=== PATIENT | female | born 1995 | race Caucasian/White ===

== ENCOUNTER 2017-01-12 13:43 | Emergency (ER) | payer SELFPAY ==
[2017-01-12 14:31] VITALS: BP 126/76
[2017-01-12] MEDS ORDERED: Lidocaine 1% MPF wEPI 200,000* 30 ML SDV ONE (14:50)
[2017-01-12] MEDS ORDERED: Lidocaine 2% W/EPI 1:100,000* 20 ML MDV ONE (14:52)
--- NOTE | 2017-01-12 15:15 | UC ---
Skin Complaint HPI - HPI Summary HPI Summary: pt presents with c/o of painful, swollen, erythematous "bumps" in right armpit. Pt states they have worsened over the last 7 days. Under sure of cause, thinks it may be from shaving. - History of Current Complaint Time Seen by Provider: 01/12/17 14:27 Stated Complaint: skin complaint Hx Obtained From: Patient Hx Last Menstrual Period: 12/20/16 ?: No Onset/Duration: Gradual Onset, Lasting Days Skin Exposure Onset/Duration: Days Ago Timing: Constant Onset Severity: Mild Current Severity: Moderate Location: Discrete - right axilla Character: Pain, Redness, Raised Aggravating: Touch Alleviating: Nothing Associated Signs & Symptoms: Positive: Tenderness - Allergy/Home Medications Allergies/Adverse Reactions: Allergies Allergy/AdvReac Type Severity Reaction Status Date / Time avoids opiates Allergy See Comment Uncoded 01/12/17 14:32 Home Medications: Home Medications Buprenorphine HCl-Naloxone HCl [Suboxone 12-3 mg] 1 mis SL DAILY 01/12/17 [ History Confirmed 01/12/17] Review of Systems Constitutional: Negative Skin: Other - erythema, tenderness, "bumps" Eyes: Negative ENT: Negative Respiratory: Negative Cardiovascular: Negative Gastrointestinal: Negative Genitourinary: Negative Motor: Decreased ROM - secondary to pain in right axilla Neurovascular: Negative Musculoskeletal: Negative Neurological: Negative Psychological: Negative All Other Systems Reviewed And Are Negative: Yes PMH/Surg Hx/FS Hx/Imm Hx Previously Healthy: Yes - Surgical History Surgical History: None - Family History Known Family History: Positive: Other - positive [facility] for URI - Social History Lives: With Family Alcohol Use: None Substance Use Type: None Substance Use Comment - Amount & Last Used: subaxone Smoking Status (MU): Heavy Every Day Tobacco Smoker - Immunization History Most Recent Tetanus Shot: unknown Physical Exam Triage Information Reviewed: Yes Appearance: Well-Appearing Vital Signs: Initial Vital Signs Temp 99.3 F 01/12/17 14:22 Pulse 89 01/12/17 14:22 Resp 16 01/12/17 14:22 BP 126/76 01/12/17 14:22 Eye Exam: Normal Neck exam: Normal Respiratory Exam: Normal Cardiovascular Exam: Normal Musculoskeletal Exam: Normal Neurological Exam: Normal Psychological Exam: Normal Skin Exam: Other - 1. erythematous area, right axilla, enlarged, tender, flucuant mass measuring 4cm X 3 cm, 2. erythematous, tender flucuant mass right axilla proximal to right medial humerous measuring 1 cm X 1 cm Course/Dx - Differential Diagnoses - Skin Complaint Differential Diagnoses: Abscess, Cellulitis, MRSA - Diagnoses Provider Diagnoses: abscess, right axilla. incision and drainage of 2 abscesses in right axilla Procedures - Incision and Drainage Site: right axilla, 2 abscesses Anesthesia: Local Instrument(s): Scalpel Discharge - Discharge Plan Condition: Stable Disposition: HOME Prescriptions: Sulfamethox/Trimethoprim DS* [Bactrim DS 800/160 TAB*] 1 tab PO BID #14 tab Patient Education Materials: Abscess Incision and Drainage (ED), Abscess (ED) Referrals: Riccardo Khalil MD [Medical Doctor] - Avelina MORE,Bradley [Medical Doctor] - Additional Instructions: Please follow up with your PCP in 2 days for wound care follow up or return to clinic. Your dressing should be changed every 8 hours or more frequently if the dressings are soiled. You have been referred to a general surgeon for follow up as needed.
== END 2017-01-12 15:38 | disposition home or self-care (01) ==
LOC: UCCORT 13:43
DX: L02.411 Cutaneous abscess of right axilla (principal); F17.210 Nicotine dependence, cigarettes, uncomplicated; Z88.5 Allergy status to narcotic agent
CPT/HCPCS: 10060; 10061; 87070; 87077; 87186; 87205; 87640; 87641; 99202; G0463; J2001

== ENCOUNTER 2019-01-30 11:16 | Observation (INO) | payer OTHER ==
--- NOTE | 2019-01-30 11:41 | ED ---
Neurological HPI - HPI Summary HPI Summary: A 23 y/o F brought in by ambulance presents to ED s/p possible sz onset [employer]. This AM she woke up at baseline, and she suddenly got very "twitchy" and lightheaded. She had LOC. She thinks it was a seizure, it was similar to 2 weeks ago. Two weeks ago, she had similar sx that were witnessed, and she was evaluated at [facility], who diagnosed her with new-onset seizure. She was scheduled for an EEG on 01/27/19 but was unable to make it due to not having child care provider. Associated sx: fever. She was at baseline yesterday. - History of Current Complaint Chief Complaint: EDSeizure Stated Complaint: SEIZURE PER EMS Time Seen by Provider: 01/30/19 11:36 Hx Obtained From: Patient Hx Last Menstrual Period: 12/20/16 Onset/Duration: Sudden Onset, Resolved Timing: Intermittent Episodes Lasting: Current Severity: Moderate Pain Intensity: 0 Pain Scale Used: 0-10 Numeric Syncope Context: Loss of Consciousness: Yes Associated Signs and Symptoms: Positive: Loss of Consciousness, Lightheadness, Fever - Allergy/Home Medications Allergies/Adverse Reactions: Allergies Allergy/AdvReac Type Severity Reaction Status Date / Time amoxicillin [From Augmentin] Allergy GI Upset Verified 01/30/19 12:31 clavulanic acid Allergy GI Upset Verified 01/30/19 12:31 [From Augmentin] nickel Allergy Unknown Verified 01/30/19 15:41 Reaction Details avoids opiates Allergy See Comment Uncoded 01/12/17 14:32 Home Medications: Home Medications Buprenorphine TAB* [Subutex TAB*] 1 tab PO TID 01/30/19 [History Confirmed 01/30] Gabapentin 1 tab PO TID 01/30/19 [History Confirmed 01/30/19] Permethrin 5% CREAM* 1 applic TOPICAL DAILY 01/30/19 [History Confirmed 01/30/19 ] PMH/Surg Hx/FS Hx/Imm Hx Previously Healthy: No - TBI, stroke, sz (per pt) Opthamlomology History: Denies: Hx Legally Blind EENT History: Denies: Hx Deafness Infectious Disease History: Yes Infectious Disease History: Denies: Traveled Outside the [place] in Last 30 Days - Family History Known Family History: Positive: Other - positive [facility] for URI - Social History Occupation: Unemployed Lives: Alone Alcohol Use: None Substance Use Type: Reports: None Substance Use Comment - Amount & Last Used: subaxone Hx Tobacco Use: Yes Smoking Status (MU): Heavy Every Day Tobacco Smoker Review of Systems Positive: Fever, Other - pos: "twitchy" Neurological: Other - pos: lightheaded Positive: Syncope - LOC All Other Systems Reviewed And Are Negative: Yes Physical Exam - Summary Physical Exam Summary: VITAL SIGNS: Reviewed. GENERAL: Patient is a well-developed and nourished FEMALE who is lying comfortable in the stretcher. Patient is not in any acute respiratory distress. HEAD AND FACE: No signs of trauma. No ecchymosis, hematomas or skull depressions. No sinus tenderness. EYES: PERRLA, EOMI x 2, No injected conjunctiva, no nystagmus. No photophobia. EARS: Hearing grossly intact. Ear canals and tympanic membranes are within normal limits. MOUTH: Oropharynx within normal limits. NECK: Supple, trachea is midline, no adenopathy, no JVD, no carotid bruit, no c- spine tenderness, neck with full ROM. No meningeal signs, no Kernig's or Brudzinskis signs. CHEST: Symmetric, no tenderness at palpation LUNGS: Clear to auscultation bilaterally. No wheezing or crackles. CVS: Regular rate and rhythm, S1 and S2 present, no murmurs or gallops appreciated. ABDOMEN: Soft, non-tender. No signs of distention. No rebound, no guarding, and no masses palpated. Bowel sounds are normal. EXTREMITIES: FROM in all major joints, no edema, no cyanosis or clubbing. NEURO: Alert and oriented x 3. Speech is normal and follows commands. Intermittent abnormal jerks and twitches diffusely across body. SKIN: Dry and warm GCS: 15 Triage Information Reviewed: Yes Vital Signs On Initial Exam: Initial Vitals Temp Pulse Resp BP Pulse Ox 100.2 F 105 15 142/76 98 01/30/19 11:22 01/30/19 11:22 01/30/19 11:22 01/30/19 11:22 01/30/19 11:22 Vital Signs Reviewed: Yes Diagnostics - Vital Signs Vital Signs Temp Pulse Resp BP Pulse Ox 01/30/19 11:22 100.2 F 105 15 142/76 98 - Laboratory Result Diagrams: 01/30/19 12:13 01/30/19 12:13 Lab Statement: Any lab studies that have been ordered have been reviewed, and results considered in the medical decision making process. - Radiology CXR Radiology Interpretation Completed By: Radiologist Summary of Radiographic Findings: IMPRESSION: #. No evidence for acute intrathoracic disease. ED provider has reviewed this report. - CT BRAIN CT Interpretation Completed By: Radiologist Summary of CT Findings: IMPRESSION: #. Negative unenhanced CT of the brain. # . Paranasal sinus disease with potential acute sinusitis. ED provider has reviewed this report. - EKG 1103 Cardiac Rate: Tachycardia - 120 bpm EKG Rhythm: Sinus Tachycardia Summary of EKG Findings: No ST elevation. Poor quality EKG. Re-Evaluation - Re-Evaluation 1 Re-Evaluation Time: 11:58 Change: Worse Comment: Pt had tonic clonic activity as witnessed by charge nurse for 45-60 secs. It has resolved at this time. Pt is postictal. 2 Re-Evaluation Time: 12:45 Change: Unchanged Comment: Pt was ambulation challenge by aide. Pt walked approx. 3 steps, and became dizzy, appears weak. Family says she typically ambulates without assistance. Course/Dx - Course Assessment/Plan: This patient is a 23-year-old female who presents to the emergency department with a chief complaint of having a seizure. Patient reports that shes been having multiple seizures since this morning. She also reports that she has history of seizures for which she was prescribed Keppra but she has not taken it due to advice from her primary care physician. When she was in the emergency department, the charge nurse witnessed the patient having a tonic-clonic seizure lasting for approximately 45 seconds. The patient was in a postictal state after the seizure. She was given 2 mg of Ativan and now she is resting comfortable. Blood work without any significant abnormality except for the bases of 13.3, INR is 1.3, potassium is 3.1, glucose 128, lactic acid is 4.1, magnesium 1.8 and alkaline phosphatase of 127. Urinalysis contaminated therefore we will send urine for cultures. Urine toxicology is negative. Chest x-ray impression: No evidence for acute intrathoracic disease. I discussed my physical exam and findings with and Dr. Childers from neurology and he recommends for the patient to be giving Keppra 1 g IV and admission to the hospitalist. Discussed the case with Dr. Johnson from the hospital services who accepted the patient for admission. - Diagnoses Provider Diagnoses: Seizure - Physician Notifications Discussed Care Of Patient With: Daniel Childers - neuro Time Discussed With Above Provider: 11:50 Instructed by Provider To: Other - Discussed case. Consulted again at 1303: Recommends starting her on Keppra 1000 mg. - Critical Care Time Critical Care Time: 30-74 min Discharge - Sign-Out/Discharge Documenting (check all that apply): Patient Departure - ADMIT Patient Received Moderate/Deep Sedation with Procedure: No - Discharge Plan Condition: Stable Disposition: ADMITTED TO [facility] - Billing Disposition and Condition Condition: STABLE Disposition: Admitted to [facility] - Attestation Statements Document Initiated by Scribe: Yes Documenting Scribe: Sangeeta Stern Provider For Whom Scribe is Documenting (Include Credential): Dr. Tommy Larry MD Scribe Attestation: I, Sangeeta Stern, scribed for Dr. Tommy Larry MD on 01/30/19 at 1831. Scribe Documentation Reviewed: Yes Provider Attestation: The documentation as recorded by the Sangeeta aguilar accurately reflects the service I personally performed and the decisions made by , Dr. Tommy Larry MD Status of Scribe Document: Viewed Consult Consult: 1330: Consult with Dr. Johnson, hospitalist Will admit patient.
[2019-01-30] MEDS ORDERED: NS 0.9% 1000 ML** 1,000 ML IV ONE (11:44)
[2019-01-30] MEDS ORDERED: LORazepam INJ* 2 MG/ML 1 ML VIAL IV PUSH ONE ×2 (11:46→12:25)
[2019-01-30 12:01] LABS: Urine Appearance Cloudy; Urine Bacteria 3+ (Absent); Urine Bilirubin Negative (Negative); Urine Blood Negative (Negative); Urine Color Yellow; Urine Glucose Negative (Negative); Urine Ketones Negative (Negative); Urine Nitrite Negative (Negative); Urine Protein 1+(30 mg/dL) (Negative); Urine Red Blood Cell 2+(6-10/hpf) (Absent); Urine Specific Gravity 1.015 (1.010-1.030); Urine Squamous Epithelial Cell Present (Absent); Urine Urobilinogen Negative (Negative); Urine White Blood Cell 1+(6-10/hpf) (Absent)
[2019-01-30 12:15] LABS: Barbiturates Urine Screen None Detected (None Detect); Benzodiazepine Urine Screen None Detected (None Detect); Urine Cannabinoids Screen None Detected (None Detect)
[2019-01-30 12:21] LABS: ABS Basophils 0.1 10^3/ul (0-0.2); ABS Eosinophils 0.2 10^3/ul (0-0.6); ABS Lymphocytes 1.7 10^3/ul (1.0-4.8); ABS Monocytes 0.4 10^3/ul (0-0.8); ABS Nucleated RBC 0 10^3/ul; Eosinophil % 1.2 %; Hematocrit 40 % (35-47); Hemoglobin 13.2 g/dl (12.0-16.0); Lymphocyte % 12.8 %; Mean Corpuscular HGB Conc 33 g/dl (31-36); Mean Corpuscular Hemoglobin 28 pg (27-31); Mean Corpuscular Volume 85 fL (80-97); Mean Platelet Volume 11.8 fL (7.4-10.4); Nucleated Red Blood Cells % 0; Platelet Count 151 10^3/ul (150-450); Red Blood Count 4.68 10^6/ul (4.00-5.40); Red Cell Distribution Width 14 % (10.5-15); White Blood Count 13.3 10^3/ul (3.5-10.8)
[2019-01-30 12:28] LABS: INR 1.03 (0.77-1.02)
[2019-01-30 12:37] LABS: ALT 9 U/L (7-52); AST 16 U/L (13-39); Albumin 3.9 g/dL (3.2-5.2); Albumin/Globulin Ratio 1.4 (1-3); Alkaline Phosphatase 127 U/L (34-104); Anion Gap 11 mmol/L (2-11); BUN/Creatinine Ratio 4.8 (8-20); Blood Urea Nitrogen 4 mg/dL (6-24); CO2 Carbon Dioxide 23 mmol/L (22-32); Chloride 105 mmol/L (101-111); Creatine Kinase 68 U/L (10-223); EGFR Non-African American 82.6 (>60); Globulin 2.7 g/dL (2-4); Glucose 128 mg/dL (70-100); Magnesium 1.8 mg/dL (1.9-2.7); Potassium 3.1 mmol/L (3.5-5.0); Sodium 139 mmol/L (135-145); Total Protein 6.6 g/dL (6.4-8.9)
[2019-01-30] MEDS ORDERED: Magnesium Sulfate 1 GM IV* 1 GM/100 ML BAG IV ONE (12:50)
[2019-01-30 13:32] LABS: Alcohol < 10 mg/dL (<10)
[2019-01-30 13:49] LABS: TSH (Thyroid Stimulating Horm) 1.33 mcIU/mL (0.34-5.60)
[2019-01-30] MEDS ORDERED: levETIRAcetam IV* 1,000 MG in NS 0.9% 100 ML* 100 ML IVPB SCH (14:00)
[2019-01-30] MEDS: KCL 10 MEQ/50 ML IVPREMIX* 10 MEQ/50 ML BAG IV SCH ×2 (14:01→16:10)
[2019-01-30] MEDS: Gabapentin CAP(*) 400 MG PO SCH ×2 (16:09→21:24)
--- NOTE | 2019-01-30 16:24 | ADMNOTE ---
Subjective Date of Service: 01/30/19 Interval History: HISTORY AND PHYSICAL PCP: Dr. Jamie Santillan, Family Med in [place] also sees Dr. Nova at [facility] CC: seizure HPI: 23 year old woman with past medical history of depression, opiate abuse, reports she had 5 seizures 2 weeks ago, was seen in [place] ER. This was accompanied by tongue biting and urinary incontinence. She was referred for EEG as a result, but this was scheduled and missed. Today she had a witnessed seizure at home. She was brought to [facility], and had another witnessed tonic/ clonic seizure in the ER. She report had first seizure 2016, when on a psychiatric medication that lowers seizure threshold. This was stopped, and she did well for 2 years. She did see neurologist in [facility] 2 years ago. Patient has h/o opiate pill and IV heroin abuse, last use May 2017. She currently is on subutex through [facility]. Family History: Findings - Mother and Father alive and well, 2 sisters are OK Social History: Findings - Single, one child at home, unemployed, smokes 1/2 PPD , no alcohol use, drug use as above Past Medical History: Findings - Endorses depression/anxiety, Opiate use disorder, seizure d/o Review of Systems - Measurements Intake and Output: Intake and Output Last 24 Hours 01/28/19 01/29/19 01/30/19 01/31/19 05:59 05:59 06:59 06:59 Weight 63.503 kg - Review of Systems Constitutional Symptoms: Positive: Fatigue Dermatology: Positive: Normal Eyes: Positive: Normal Thyroid: Positive: Normal Pulmonary: Positive: Normal Cardiology: Positive: Normal Gastroenterology: Positive: Normal, Other - has Hep C Ab, negative VL, never treated Genital - Urinary: Positive: Normal Genitourinay - Female: Positive: Menses Normal Endocrinology: Positive: Normal Hematologic/Lymphatic: Negative: Anemia Neurology: Positive: Hx of Seizures Psychiatry: Positive: Depression, Anxiety Objective Active Medications: Home Medications: Buprenorphine HCl (Subutex Tab*) 8 mg PO TID LIZANDRO Gabapentin (Neurontin Cap(*)) 800 mg PO TID LIZANDRO Last Admin: 01/30/19 16:09 Dose: 800 mg Vital Signs - 8 hr 01/30/19 01/30/19 01/30/19 11:22 11:24 11:25 Temperature 37.9 C Pulse Rate 105 100 Respiratory 15 17 15 Rate Blood Pressure 142/76 142/76 (mmHg) O2 Sat by Pulse 98 98 Oximetry 01/30/19 01/30/19 01/30/19 11:55 12:00 12:05 Temperature Pulse Rate 119 124 Respiratory 13 20 21 Rate Blood Pressure 151/83 (mmHg) O2 Sat by Pulse 99 96 Oximetry 01/30/19 01/30/19 01/30/19 12:26 12:55 13:00 Temperature Pulse Rate 97 87 89 Respiratory 16 13 14 Rate Blood Pressure 104/84 122/65 (mmHg) O2 Sat by Pulse 98 97 100 Oximetry 01/30/19 01/30/19 01/30/19 13:36 14:00 14:25 Temperature Pulse Rate 88 74 84 Respiratory 18 14 20 Rate Blood Pressure 116/70 113/68 (mmHg) O2 Sat by Pulse 98 97 97 Oximetry 01/30/19 01/30/19 01/30/19 15:05 15:26 16:09 Temperature 36.6 C 37.7 C Pulse Rate 58 83 Respiratory 20 20 20 Rate Blood Pressure 110/64 113/68 (mmHg) O2 Sat by Pulse 99 97 Oximetry Oxygen Devices in Use Now: None Appearance: Alert, somnolent Eyes: No Scleral Icterus Ears/Nose/Mouth/Throat: NL Teeth, Lips, Gums, Clear Oropharnyx Neck: NL Appearance and Movements; NL JVP Respiratory: Symmetrical Chest Expansion and Respiratory Effort, Clear to Auscultation, Clear to Percussion Cardiovascular: NL Sounds; No Murmurs; No JVD, RRR Abdominal: NL Sounds; No Tenderness; No Distention Lymphatic: No Cervical Adenopathy Extremities: No Edema Skin: No Rash or Ulcers Neurological: Alert and Oriented x 3, NL Muscle Strength and Tone Lines/Tubes/Other Access: Clean, Dry and Intact Peripheral IV Nutrition: Taking PO's Result Diagrams: 01/30/19 12:13 01/30/19 12:13 Diagnostic Imaging: Chest X-ray NEG Head CT; NEG EKG Data: Normal sinus rhythm, normal axis, QT prolonged 460 ms Assess/Plan/Problems-Billing Assessment: 23 year old with new onset seizures. - Patient Problems (1) Seizure disorder Current Visit: No Status: Acute Priority: High Code(s): G40.909 - EPILEPSY , UNSP, NOT INTRACTABLE, WITHOUT STATUS EPILEPTICUS SNOMED Code(s): 418812624 Comment: -Differential would include primary epileptic condition, medication effect, undisclosed head trauma w/ scarring, brain neoplasm -Will be admitted to [facility], will have MRI, EEG tomorrow, as well as neurology consultation. -Placed on seizure precautions. (2) Hypokalemia Current Visit: Yes Status: Acute Priority: Medium Code(s): E87.6 - HYPOKALEMIA SNOMED Code(s): 21956254 Comment: -has low Mg as well, may have poor nutrition -Some risk of arrhythmia, will monitor on telemetry -Repleted Mg and K, will recheck in AM (3) Opiate abuse, episodic Current Visit: Yes Status: Acute Priority: Medium Code(s): F11.10 - OPIOID ABUSE, UNCOMPLICATED SNOMED Code(s): 8438445 Comment: -Will continue subutex. Status and Disposition: Will be on observation status
[2019-01-30] MEDS: Potassium Chlor TAB* 10 MEQ TAB.ER PO SCH ×2 (17:06→21:25)
[2019-01-30] MEDS ORDERED: Heparin VIAL(*) 5000 UNITS/ML VIAL (FIVE THOUSAND) SUBCUT SCH (21:00)
[2019-01-30] MEDS: levETIRAcetam TAB* 500 MG PO SCH (21:23)
[2019-01-30] MEDS: Buprenorphine TAB* 8 MG PO SCH (21:24)
[2019-01-31 05:41] LABS: Hematocrit 37 % (35-47); Hemoglobin 12.1 g/dl (12.0-16.0); Mean Corpuscular HGB Conc 33 g/dl (31-36); Mean Corpuscular Hemoglobin 28 pg (27-31); Mean Corpuscular Volume 85 fL (80-97); Mean Platelet Volume 11.6 fL (7.4-10.4); Platelet Count 123 10^3/ul (150-450); Red Blood Count 4.28 10^6/ul (4.00-5.40); Red Cell Distribution Width 14 % (10.5-15); White Blood Count 6.7 10^3/ul (3.5-10.8)
[2019-01-31 05:56] LABS: BUN/Creatinine Ratio 6.3 (8-20); Calcium 8.8 mg/dL (8.6-10.3); EGFR African American 107.3 (>60); EGFR Non-African American 88.7 (>60); Magnesium 1.9 mg/dL (1.9-2.7); Potassium 3.8 mmol/L (3.5-5.0)
[2019-01-31 06:03] LABS: ABS Basophils 0.1 10^3/ul (0-0.2); ABS Eosinophils 0.2 10^3/ul (0-0.6); ABS Lymphocytes 2.4 10^3/ul (1.0-4.8); ABS Monocytes 0.3 10^3/ul (0-0.8); ABS Neutrophils 3.7 10^3/ul (1.5-7.7); ABS Nucleated RBC 0 10^3/ul; Lymphocyte % 35.9 %; Nucleated Red Blood Cells % 0
[2019-01-31] MEDS: Potassium Chlor TAB* 10 MEQ TAB.ER PO SCH (09:22)
[2019-01-31] MEDS: Gabapentin CAP(*) 400 MG PO SCH ×2 (09:23→15:23)
[2019-01-31] MEDS: levETIRAcetam TAB* 500 MG PO SCH (09:23)
[2019-01-31] MEDS: Buprenorphine TAB* 8 MG PO SCH ×2 (09:24→15:24)
--- NOTE | 2019-01-31 12:31 | PN ---
Subjective Date of Service: 01/31/19 Interval History: Patient feeling well, though making comments about leaving hospital to see her child. Notes scabbing to area of tattoo on left arm. Received tattoo approx 9 days ago and scabbing started 3 days later. Pt prescribed permethrin cream for scabies less than one week ago, pt reports adherence to treatment. Denies visual changes, dizziness, difficulty with gait, chest pain, or shortness of breath. Family History: Findings - Mother and Father alive and well, 2 sisters are OK Social History: Findings - Single, one child at home, unemployed, smokes 1/2 PPD , no alcohol use, drug use as above Past Medical History: Findings - Endorses depression/anxiety, Opiate use disorder, seizure d/o Objective Active Medications: Buprenorphine HCl (Subutex Tab*) 8 mg PO TID [facility] Last Admin: 01/31/19 09:24 Dose: 8 mg Gabapentin (Neurontin Cap(*)) 800 mg PO TID [facility] Last Admin: 01/31/19 09:23 Dose: 800 mg Levetiracetam (Keppra Tab*) 1,000 mg PO BID [facility] Last Admin: 01/31/19 09:23 Dose: 1,000 mg Potassium Chloride (Klor Con Er Tab*) 10 meq PO BID [facility] Last Admin: 01/31/19 09:22 Dose: 10 meq Vital Signs - 8 hr 01/31/19 01/31/19 01/31/19 08:01 09:23 09:24 Temperature 97.8 F Pulse Rate 61 Respiratory 16 16 16 Rate Blood Pressure 95/58 (mmHg) O2 Sat by Pulse 100 Oximetry 01/31/19 01/31/19 09:37 11:38 Temperature 97.8 F Pulse Rate 70 Respiratory 16 Rate Blood Pressure 118/64 133/83 (mmHg) O2 Sat by Pulse 98 Oximetry Oxygen Devices in Use Now: None Appearance: Young female, sitting on edge of bed, appearing in NAD Eyes: No Scleral Icterus, PERRLA, - - EOMI Ears/Nose/Mouth/Throat: Mucous Membranes Moist Neck: Trachea Midline, - - Neck supple Respiratory: Symmetrical Chest Expansion and Respiratory Effort, Clear to Auscultation Cardiovascular: NL Sounds; No Murmurs; No JVD, RRR, No Edema Abdominal: - - Abdomen soft and nontender; normoactive BS x 4 quadrants Extremities: No Edema, No Clubbing, Cyanosis Skin: - - Many excoriations throughout bilateral LEs; two ~1cm areas of eschar on right UE with minimal surrounding erythema Neurological: Alert and Oriented x 3, NL Gait, NL Muscle Strength and Tone Result Diagrams: 01/31/19 05:26 01/31/19 05:26 Microbiology and Other Data: Microbiology 01/30/19 11:30 Urine Culture - Final Urine No Growth (<1,000 CFU/mL) 01/30/19 14:05 Nasal Screen MRSA (PCR) - Final Nasal Mrsa Detected Diagnostic Imaging: Chest X-ray NEG Head CT; NEG EKG Data: Normal sinus rhythm, normal axis, QT prolonged 460 ms Assess/Plan/Problems-Billing Assessment: 23 yo female with PMHx depression and opiate use disorder presents to the ED with seizure. Year of first seizure onset in 2017 with little follow up and patient not taking anti-epileptic medication. - Patient Problems (1) Seizure disorder Current Visit: Yes Status: Acute Priority: High Code(s): G40.909 - EPILEPSY, UNSP, NOT INTRACTABLE, WITHOUT STATUS EPILEPTICUS SNOMED Code(s): 660819924 Comment: -MRI reveals non-bleeding DVA -EEG completed today, awaiting neurology recommendations -Placed on seizure precautions. -discharge instructions must include that patient is prohibited from driving for 6 months (2) Hypokalemia Current Visit: Yes Status: Acute Priority: Medium Code(s): E87.6 - HYPOKALEMIA SNOMED Code(s): 79558366 Comment: -corrected today -pt also admitted with hypomagnesemia, also correected -Some risk of arrhythmia, will monitor on telemetry (3) Opiate abuse, episodic Current Visit: Yes Status: Chronic Priority: Medium Code(s): F11.10 - OPIOID ABUSE, UNCOMPLICATED SNOMED Code(s): 0976466 Comment: -Will continue subutex. (4) Positive nasal culture for methicillin resistant Staphylococcus aureus Current Visit: Yes Status: Acute Code(s): Z22.322 - CARRIER OR SUSPECTED CARRIER OF METHICILLIN RESIS STAPH SNOMED Code(s): 050263444 Comment: -concern for soft tissue infection at site of tattoo (5) Scabies Current Visit: Yes Status: Acute Comment: -pt prescribed permethrin cream several days ago, continues to complain of itch (6) DVT prophylaxis Current Visit: Yes Status: Acute Code(s): AHI1820 - SNOMED Code(s): 885061554 Comment: -DVT risk score of 0 -pt ambulating Status and Disposition: Will be on observation status
--- NOTE | 2019-01-31 13:36 | EEG ---
ELECTROENCEPHALOGRAPHY: DATE OF STUDY: 01/31/19 LOCATION: She is an inpatient, room 435. REFERRING PROVIDER: Dr. Byrd." CLINICAL PROBLEM: Possible seizure activity the day prior to this recording. She had another episod e 2 weeks prior. MEDICATIONS: Include: 1. Gabapentin. 2. Keppra. 3. Buprenorphine. REPORT: This 16-channel EEG is remarkable for background rhythms consistent of a well formed alpha r hythm in the posterior derivations at 9 cycles per second which is symmetric. Moderate voltage beta rhythms are seen bifrontally. Throughout the tracing, there are bursts of high voltage sharp activit y. At times, it seems to emanate from the left hemisphere, but at other times it seems fairly synchr onous onset in both hemispheres. There are no clinical events. The patient drowses and sleeps with vertex sharp waves and sleep spindles symmetrically. CLINICAL IMPRESSION: Abnormal EEG due to generalized bursts of high voltage sharp activity at times preferentially from the left hemisphere. This tracing is suggestive of a possible focal onset seizur e disorder. [id number]/[facility] #: [id number]
[2019-01-31] MEDS ORDERED: lamoTRIgine TAB(*) 25 MG PO SCH (15:00)
[2019-01-31] MEDS ORDERED: diPHENhydraMINE PO* 25 MG PO ONE (15:30)
[2019-01-31] MEDS ORDERED: Sulfamethox/Trimethoprim DS 800/160* TAB PO SCH (16:00)
[2019-01-31 16:47] VITALS: BP 99/73
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
--- NOTE | 2019-01-31 23:12 | DS ---
CC: JULIETA Camilo; Dr. Childers.* DISCHARGE SUMMARY: DATE OF ADMISSION: 01/30/19 DATE OF DISCHARGE: 01/31/19 PROVIDER: JULIETA Jimenez ATTENDING PHYSICIAN: Dr. Roshni Cramer * (dictated by JULIETA Jimenez) PRIMARY CARE PROVIDER: JULIETA Camilo PRIMARY DIAGNOSES: 1. Focal onset seizure disorder. 2. Scabies. 3. Skin/soft tissue infection, MRSA nasal swab positive. SECONDARY DIAGNOSES: 1. Depression. 2. Opioid use disorder. CONSULTS WHILE IN HOSPITAL: Dr. Childers. STUDIES WHILE IN THE HOSPITAL: Brain CT on 01/30/19. Report. Impression: "Negative unenhanced CT of the brain. Paranasal sinus disease with essential acute sinusitis." Chest x-ray on 01/30/19. Impression: "No evidence for acute intrathoracic disease." On 01/31/19. Brain MRI. Impression: "Abnormal signal of the cortex along the right inferior frontal gyrus, this may represent gliosis. The cortex appears slightly thickened in caliber consistent with gliosis. There is no appreciable cortical thickening or architectural distortion, though focal cortical dysplasia is still within the differential. There is abnormal signal in the subcortical white matter which is which is suggestive of an associated DVA, though definitive diagnosis would require contrast enhanced MRI. Extensive sinus mucosal inflammatory disease, without air fluid level to suggest sinusitis." On 01/31/19. EEG. Clinical impression: "Abnormal EEG due to generalized burst of high voltage sharp activity at times preferentially from left hemisphere. This tracing is suggestive of a possible focal onset seizure disorder." PROCEDURES WHILE IN THE HOSPITAL: None. MEDICATIONS: Continued home medications: 1. Gabapentin 800 mg p.o. t.i.d. 2. Subutex 8 mg p.o. t.i.d. 3. Permethrin 5% cream, apply topically 1 time. Discharge medications: 1. Lamotrigine 25 mg p.o. b.i.d. for 1 week, then 50 mg p.o. b.i.d. 2. Bactrim Double Strength 1 tab p.o. daily for 6 days. HISTORY OF PRESENT ILLNESS/HOSPITAL COURSE: The patient is a 23-year-old female with past medical history of depression and opioid use disorder, who presents to the emergency room after a witnessed seizure, and experienced an additional witnessed seizure in the emergency department. The hospitalist service was called for admission to the hospital. During her admission, she had the above imaging. Note that the patient was found to be hypokalemic on admission, this was resolved with repletion with potassium chloride during her stay. She was seen by neurologist, Dr. Childers. She was determined to have a focal onset seizure disorder. During her stay, she was originally prescribed Keppra, but after seeing the patient, Dr. Childers recommended lamotrigine. Additionally, in her stay, she was noted to potentially have scabies, for which she was already prescribed permethrin cream at an outpatient clinic. Additionally, it was noticed that she had a soft tissue infection on the right upper extremity, and the patient was found to be MRSA positive on admission. For her substance use disorder, her home dose of Subutex was continued. Today, the patient is feeling well and you can see today's progress note for review of systems. PHYSICAL EXAM: See today's progress note for physical exam. DISCHARGE PLAN: The patient may return to normal activity. The patient may return to her regular diet. Regarding her new seizure disorder, Dr. Childers would like her to follow up in the office in 3-4 weeks. It is [place] State law that the patient abstain from driving a motor vehicle for 6 months and contact her local DMV. She is discharged on lamotrigine 25 mg BID qd for 1 week and then she is to increase her dose to lamotrigine 50 mg BID qd thereafter. For her skin/soft tissue infection, she was given 1 dose of DS Bactrim in hospital and is to continue this prescription for an additional 6 days. For her opioid use disorder, she is to continue her home Subutex. For her scabies, she was already treated with one dose of permethrin 5% cream at home and she is to follow up with her PCP. CONDITION ON DISCHARGE: Stable. TIME SPENT: Time spent for this discharge was approximately 60 minutes, with approximately 30 minutes spent [id number] with patient. JULIETA JIMENEZ [id number]/[facility] #: [id number] RICKY
== END 2019-01-31 17:00 | disposition home or self-care (01) ==
LOC: ED 11:16 → INTOOBSV 14:44 → MEDTELE 14:44
PROVIDERS: ADMIT Internal Medicine; ATTEND Internal Medicine
DX: G40.109 Localization-related (focal) (partial) symptomatic epilepsy and epileptic syndromes with simple partial seizures, not intractable, without status epilepticus (principal); B86 Scabies; B95.62 Methicillin resistant Staphylococcus aureus infection as the cause of diseases classified elsewhere; L08.9 Local infection of the skin and subcutaneous tissue, unspecified; F32.9 Major depressive disorder, single episode, unspecified; F11.10 Opioid abuse, uncomplicated; R42 Dizziness and giddiness; R50.9 Fever, unspecified; Z88.0 Allergy status to penicillin; F17.210 Nicotine dependence, cigarettes, uncomplicated; R55 Syncope and collapse; E87.6 Hypokalemia; Z22.322 Carrier or suspected carrier of Methicillin resistant Staphylococcus aureus
CPT/HCPCS: 36415; 70450; 70551; 71045; 80048; 80053; 80307; 80320; 81003; 81015; 82550; 83605; 83735; 84443; 85025; 85610; 87086; 87641; 93005; 95819; 96361; 96365; 96367; 96375; 99285; 99406; A9270-GY; G0378; G0480; J2060; J3475; J3480

== ENCOUNTER 2019-04-16 16:27 | Emergency (ER) | payer OTHER ==
--- NOTE | 2019-04-16 16:35 | ED ---
Skin Complaint - HPI Summary HPI Summary: Patient is a 23-year-old female who presents to the urgent care with a chief complaint of I have a sore in my chest. She reports that she is not having a lesion as a pimple in the middle of her chest and no he has surrounding erythema and some purulent discharge. She reports that she has history of MRSA therefore she decided to come to the urgent care for further workup and management. She denies any fever or chills, she denies any nausea or vomiting. She has no other complaints - History of Current Complaint Time Seen by Provider: 04/16/19 16:29 Stated Complaint: SORE ON CHEST Hx Obtained From: Patient Hx Last Menstrual Period: 12/20/16 Skin Exposure Onset/Duration: Days Ago Onset Severity: Mild Current Severity: Mild Pain Intensity: 3 - Additional Pertinent History Primary Care Physician: [id number] - Allergy/Home Medications Allergies/Adverse Reactions: Allergies Allergy/AdvReac Type Severity Reaction Status Date / Time amoxicillin [From Augmentin] Allergy GI Upset Verified 04/16/19 16:38 clavulanic acid Allergy GI Upset Verified 04/16/19 16:38 [From Augmentin] nickel Allergy Unknown Verified 04/16/19 16:38 Reaction Details avoids opiates Allergy See Comment Uncoded 04/16/19 16:38 PMH/Surg Hx/FS Hx/Imm Hx Previously Healthy: Yes Cardiovascular History: Denies: Hx Pacemaker/ICD Sensory History: Denies: Hx Contacts or Glasses, Hx Legally Blind, Hx Deafness, Hx Hearing Aid Opthamlomology History: Denies: Hx Contacts or Glasses, Hx Legally Blind Neurological History: Reports: Hx Seizures Psychiatric History: Reports: Hx Anxiety, Hx Depression Denies: Hx Panic Disorder - Surgical History Hx Anesthesia Reactions: No Infectious Disease History: Denies: Traveled Outside the [place] in Last 30 Days - Family History Known Family History: Positive: Other - positive [facility] for URI - Social History Alcohol Use: None Substance Use Type: Reports: None Substance Use Comment - Amount & Last Used: subaxone Hx Tobacco Use: Yes Smoking Status (MU): Heavy Every Day Tobacco Smoker Review of Systems Constitutional: Negative Eyes: Negative ENT: Negative Cardiovascular: Negative Respiratory: Negative Gastrointestinal: Negative Genitourinary: Negative Musculoskeletal: Negative Positive: Rash Neurological: Negative Psychological: Normal All Other Systems Reviewed And Are Negative: Yes Physical Exam - Summary Physical Exam Summary: VITAL SIGNS: Reviewed. GENERAL: Patient is a well developed and nourished female who is lying comfortable in the stretcher. Patient is not in any acute respiratory distress. HEAD AND FACE: No signs of trauma. No ecchymosis, hematomas or skull depressions. No sinus tenderness. EYES: PERRLA, EOMI x 2, No injected conjunctiva, no nystagmus. EARS: Hearing grossly intact. Ear canals and tympanic membranes are within normal limits. MOUTH: Oropharynx within normal limits. NECK: Supple, trachea is midline, no adenopathy, no JVD, no carotid bruit, no c- spine tenderness, neck with full ROM. CHEST: Symmetric, no tenderness at palpation LUNGS: Clear to auscultation bilaterally. No wheezing or crackles. CVS: Regular rate and rhythm, S1 and S2 present, no murmurs or gallops appreciated. ABDOMEN: Soft, non-tender. No signs of distention. No rebound no guarding, and no masses palpated. Bowel sounds are normal. EXTREMITIES: FROM in all major joints, no edema, no cyanosis or clubbing. NEURO: Alert and oriented x 3. No acute neurological deficits. Speech is normal and follows commands. SKIN: Dry and warm, Positive erythema of approximately 2x2 cm in the chest. Mild purulent discharge Triage Information Reviewed: Yes Course/Dx - Course Assessment/Plan: In the urgent care or physical exam the patient has these small area of erythema with a central area of yellowish discharge. I took a culture and sent to the lab. Since the patient has history of MRSA I placed the patient on Bactrim. The patient was discharged home with follow-up with the primary care physician in the next 3 days. Patient is hemodynamically stable alert and oriented 3. WOund culture send to the lab - Diagnoses Provider Diagnoses: Cellulitis Discharge - Sign-Out/Discharge Documenting (check all that apply): Patient Departure All imaging exams completed and their final reports reviewed: No Studies - Discharge Plan Condition: Stable Disposition: HOME Prescriptions: Sulfamethox/Trimethoprim DS* [Bactrim DS 800/160 TAB*] 1 tab PO DAILY #20 tab Patient Education Materials: Cellulitis (ED) Referrals: Rosetta Santillan FIL[employer] CHANGER [Primary Care Provider] - Additional Instructions: Take medications as instructed Increase your fluid intake Return to the if symptoms worsen - Billing Disposition and Condition Condition: STABLE Disposition: Home
[2019-04-16 16:38] VITALS: BP 139/80
--- NOTE | 2019-04-17 16:02 | UC ---
- Progress Note Progress Note: 04/17/2019 wound culture forn chest: no organism seen. Pending final report No change Kailee BURKS Course/Dx - Diagnoses Provider Diagnoses: Cellulitis Discharge - Sign-Out/Discharge Documenting (check all that apply): Post-Discharge Follow Up All imaging exams completed and their final reports reviewed: No Studies - Discharge Plan Condition: Stable Disposition: HOME Prescriptions: Sulfamethox/Trimethoprim DS* [Bactrim DS 800/160 TAB*] 1 tab PO DAILY #20 tab Patient Education Materials: Cellulitis (ED) Referrals: Rosetta Santillan NP [Primary Care Provider] - Additional Instructions: Take medications as instructed Increase your fluid intake Return to the UC if symptoms worsen - Billing Disposition and Condition Condition: STABLE Disposition: Home - Attestation Statements Provider Attestation: I was available for consult. This patient was seen by the TERRI. The patient was not presented to, seen by, or examined by me. -Hermilo
--- NOTE | 2019-04-18 14:04 | UC ---
- Progress Note Progress Note: wound MRSA + Pt on bactrim await sensitivity no change Hermilo 04/18/19 Course/Dx - Diagnoses Provider Diagnoses: Cellulitis Discharge - Sign-Out/Discharge Documenting (check all that apply): Post-Discharge Follow Up All imaging exams completed and their final reports reviewed: No Studies - Discharge Plan Condition: Stable Disposition: HOME Prescriptions: Sulfamethox/Trimethoprim DS* [Bactrim DS 800/160 TAB*] 1 tab PO DAILY #20 tab Patient Education Materials: Cellulitis (ED) Referrals: Rosetta Santillan NP [Primary Care Provider] - Additional Instructions: Take medications as instructed Increase your fluid intake Return to the UC if symptoms worsen - Billing Disposition and Condition Condition: STABLE Disposition: Home
--- NOTE | 2019-04-19 20:07 | UC ---
- Progress Note Progress Note: Wound culture and susceptibilities come back from April 16, 2019. Positive MRSA that is sensitive to Bactrim. The patient is on Bactrim therefore there is no need to change anything at this time. Course/Dx - Diagnoses Provider Diagnoses: Cellulitis Discharge - Sign-Out/Discharge Documenting (check all that apply): Patient Departure All imaging exams completed and their final reports reviewed: No Studies - Discharge Plan Condition: Stable Disposition: HOME Prescriptions: Sulfamethox/Trimethoprim DS* [Bactrim DS 800/160 TAB*] 1 tab PO DAILY #20 tab Patient Education Materials: Cellulitis (ED) Referrals: Rosetta Santillan NP [Primary Care Provider] - Additional Instructions: Take medications as instructed Increase your fluid intake Return to the UC if symptoms worsen - Billing Disposition and Condition Condition: STABLE Disposition: Home
== END 2019-04-16 16:50 | disposition home or self-care (01) ==
LOC: UCEAST 16:27
DX: L03.313 Cellulitis of chest wall (principal); Z91.09 Other allergy status, other than to drugs and biological substances; Z88.0 Allergy status to penicillin
CPT/HCPCS: 87070; 87077; 87186; 87205; 87640; 87641; 99212; G0463

== ENCOUNTER 2019-11-30 17:44 | Emergency (ER) | payer OTHER ==
[2019-11-30 18:04] VITALS: BP 128/83
--- NOTE | 2019-11-30 18:50 | UC ---
Headache HPI - HPI Summary HPI Summary: 23-year-old female who complains of a headache and nausea starting today. It was not a sudden onset headache. She has no history of migraines however she states over the past couple of weeks she has been having headaches more often. She states this is the worst headache she has ever had in her life. She denies any recent illness. She does have some decayed teeth however denies having a toothache. - History Of Current Complaint Chief Complaint: UCHeadache Stated Complaint: NAUSEA, HEADACHE Time Seen by Provider: 11/30/19 18:49 Hx Obtained From: Patient Hx Last Menstrual Period: [id number] ?: No Onset/Duration: Gradual Onset Onset Of Symptoms: Gradual, Still Present Initially Headache Was: "Worst Headache Ever" Pain Intensity: 6 Timing: Constant Character: Sharp, Throbbing Location of Headache: Diffuse Aggravating Factor(s): Bright Lights Allevating Factor(s): Nothing Associated Signs And Symptoms: Positive: Nausea - Allergies/Home Medications Allergies/Adverse Reactions: Allergies Allergy/AdvReac Type Severity Reaction Status Date / Time clavulanic acid Allergy GI Upset Verified 11/30/19 18:04 [From Augmentin] nickel Allergy Unknown Verified 11/30/19 18:04 Reaction Details avoids opiates Allergy See Comment Uncoded 11/30/19 18:04 PMH/Surg Hx/FS Hx/Imm Hx Previously Healthy: Yes Neurological History: Seizures - Surgical History Surgical History: None - Family History Known Family History: Positive: Other - positive [facility] for URI - Social History Lives: With Family Alcohol Use: None Substance Use Type: None Substance Use Comment - Amount & Last Used: subaxone Smoking Status (MU): Light Every Day Tobacco Smoker Household Exposure Type: Cigarettes - Immunization History Most Recent Tetanus Shot: unknown Review of Systems All Other Systems Reviewed And Are Negative: Yes Eyes: Positive: Other - Patient states the lights hurt her eyes. Gastrointestinal: Positive: Nausea Neurological: Positive: Headache - Patient states this is the worst headache she ever had in her life. Is Patient Immunocompromised?: No Physical Exam Triage Information Reviewed: Yes Appearance: Well-Appearing, No Pain Distress, Well-Nourished Vital Signs: Initial Vital Signs Temp 99.2 F 11/30/19 17:58 Pulse 71 11/30/19 17:58 Resp 16 11/30/19 17:58 BP 128/83 11/30/19 17:58 Pulse Ox 100 11/30/19 17:58 Vital Signs Reviewed: Yes Eyes: Positive: Conjunctiva Clear - PERRLA, EOMI ENT: Positive: Hearing grossly normal, Pharynx normal, TMs normal, Uvula midline Dental: Positive: Gross Decay/Caries @ - Patient has a left lower molar which is decayed and broken however the gumline itself is mildly swollen but not erythematous and no abscess formation or pus drainage. Neck: Positive: Supple, Nontender, No Lymphadenopathy Respiratory: Positive: Lungs clear, Normal breath sounds, No respiratory distress, No accessory muscle use Cardiovascular: Positive: RRR, No Murmur, Pulses Normal, Brisk Capillary Refill Musculoskeletal Exam: Normal Musculoskeletal: Positive: Other: - Good peripheral pulses, neuro sensation and capillary refill. Good arm and leg strength against resistance. Neurological: Positive: Alert, Muscle Tone Normal - Cranial nerves II through XII are intact, alert and oriented 3, reflexes +2 at the knee. Psychological Exam: Normal Skin Exam: Normal Headache Course/Dx - Course Course Of Treatment: I spoke with the patient at length regarding the type of headache and her history of headaches however she states this is worst headache she's ever had in her life. We discussed going to the emergency room for further treatment and at first she wanted to just go home and rest and have a note for work. I advised her she would need to sign out AGAINST MEDICAL ADVICE because my's recommendation is to go to the emergency room for evaluation of the worst headache she ever had in her life. After discussion with her family members she decided she would go to the emergency room for further treatment. She refused ambulance transport and stated she would have someone drive her to the emergency room for evaluation and treatment. She is alert and oriented and in no distress. - Differential Dx/Diagnosis Provider Diagnosis: Headache Discharge ED - Sign-Out/Discharge Documenting (check all that apply): Patient Departure All imaging exams completed and their final reports reviewed: No Studies - Discharge Plan Condition: Good Disposition: HOME-RECOMMEND TO ED Referrals: Rosetta Santillan NP [Primary Care Provider] - Additional Instructions: Go to the emergency room for further treatment of the worst headache of your life. - Billing Disposition and Condition Condition: GOOD Disposition: Home-Recommend to ED
== END 2019-11-30 19:08 | disposition home health service (06) ==
LOC: UCEAST 17:44
DX: R51 Headache (principal); R11.0 Nausea; F17.210 Nicotine dependence, cigarettes, uncomplicated; Z88.0 Allergy status to penicillin; Z91.09 Other allergy status, other than to drugs and biological substances; Z88.5 Allergy status to narcotic agent
CPT/HCPCS: 99212; G0463

== ENCOUNTER 2019-11-30 19:24 | Emergency (ER) | payer OTHER ==
[2019-11-30] MEDS ORDERED: Ondansetron ODT TAB* 4 MG PO ONE (20:03)
--- NOTE | 2019-11-30 20:04 | ED ---
Headache - HPI Summary HPI Summary: 23-year-old female presents with intermittent headaches today. States that it is currently a 3 out of 10. States it was bad earlier but has since dissipated. She states that it did not start suddenly. Been having headaches for the past couple weeks. She states she believes this is related to her dental pain. She states she has pain in the frontal region. She admits to photophobia and she denies any change in vision. She admits to nausea but there has been no vomiting. Denies any family history of migraines or aneurysms. She has history of seizures. She denies any fevers. No sinus congestion and no neck stiffness. She is requesting a work note. She was seen at urgent care and sent here as she was having such an intense headache but she is not having intense headache now. - History Of Current Complaint Chief Complaint: EDHeadache Stated Complaint: HEADACHE/NAUSEA PER PT Time Seen by Provider: 11/30/19 19:58 Hx Last Menstrual Period: [id number] - Allergies/Home Medications Allergies/Adverse Reactions: Allergies Allergy/AdvReac Type Severity Reaction Status Date / Time clavulanic acid Allergy GI Upset Verified 11/30/19 18:04 [From Augmentin] nickel Allergy Unknown Verified 11/30/19 18:04 Reaction Details avoids opiates Allergy See Comment Uncoded 11/30/19 18:04 PMH/Surg Hx/FS Hx/Imm Hx Endocrine/Hematology History: Denies: Hx Anticoagulant Therapy Cardiovascular History: Denies: Hx Pacemaker/ICD Sensory History: Denies: Hx Contacts or Glasses, Hx Legally Blind, Hx Deafness, Hx Hearing Aid Opthamlomology History: Denies: Hx Contacts or Glasses, Hx Legally Blind Neurological History: Reports: Hx Seizures Psychiatric History: Reports: Hx Anxiety, Hx Depression Denies: Hx Panic Disorder - Surgical History Hx Anesthesia Reactions: No Infectious Disease History: Yes Infectious Disease History: Reports: 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 Denies: Traveled Outside the [place] in Last 30 Days - Family History Known Family History: Positive: Other - positive [facility] for URI - Social History Alcohol Use: None Substance Use Type: Reports: None Substance Use Comment - Amount & Last Used: subaxone Hx Tobacco Use: Yes Smoking Status (MU): Light Every Day Tobacco Smoker Review of Systems Negative: Fever Positive: Dental Pain Negative: Chest Pain Negative: Shortness Of Breath Positive: Headache All Other Systems Reviewed And Are Negative: Yes Physical Exam Triage Information Reviewed: Yes Vital Signs On Initial Exam: Initial Vitals Temp Pulse Resp BP Pulse Ox 98.5 F 73 16 139/87 99 11/30/19 19:25 11/30/19 19:25 11/30/19 19:25 11/30/19 19:25 11/30/19 19:25 Vital Signs Reviewed: Yes Appearance: Positive: Well-Appearing Skin: Positive: Warm, Dry Head/Face: Positive: Normal Head/Face Inspection Eyes: Positive: Normal, EOMI, CARMELLA, Conjunctiva Clear ENT: Positive: Pharynx normal, TMs normal Dental: Positive: Percussion Tenderness @ - 19 Respiratory/Lung Sounds: Positive: Clear to Auscultation, Breath Sounds Present Cardiovascular: Positive: Normal, RRR Musculoskeletal: Positive: Normal Neurological: Positive: Sensory/Motor Intact, Alert, Oriented to Person Place, Time, CN Intact II-III Psychiatric: Positive: Normal - Linh Coma Scale Best Eye Response: 4 - Spontaneous Best Motor Response: 6 - Obeys Commands Best Verbal Response: 5 - Oriented Coma Scale Total: 15 Procedures - Sedation Patient Received Moderate/Deep Sedation with Procedure: No Diagnostics - Vital Signs Vital Signs Temp Pulse Resp BP Pulse Ox 11/30/19 19:25 98.5 F 73 16 139/87 99 - Laboratory Lab Statement: Any lab studies that have been ordered have been reviewed, and results considered in the medical decision making process. - CT brain CT Interpretation Completed By: Radiologist Summary of CT Findings: IMPRESSION: No acute intracranial abnormality. Re-Evaluation - Re-Evaluation First Eval Re-Evaluation Time: 22:14 Comment: headache resolved Headache Course/Dx - Course Course Of Treatment: 23-year-old female presents with intermittent headaches today. States that it is currently a 3 out of 10. States it was bad earlier but has since dissipated. She states that it did not start suddenly. Been having headaches for the past couple weeks. She states she believes this is related to her dental pain. She states she has pain in the frontal region. She admits to photophobia and she denies any change in vision. She admits to nausea but there has been no vomiting. Denies any family history of migraines or aneurysms. She has history of seizures. She denies any fevers. No sinus congestion and no neck stiffness. She is requesting a work note. She was seen at urgent care and sent here as she was having such an intense headache but she is not having intense headache now. as was having an intense headache we'll get a CT. On exam has decayed teeth noted with tenderness around the tooth. No abscess noted. Has a normal neuro exam. CT brain normal. gave toradol and pain relieved. will discharge on clindamycin for potential dental infection. patient understand and agrees with plan. - Diagnoses Differential Diagnosis/HQI/PQRI: Migraine, Tension Headache, Viral Syndrome Provider Diagnoses: Headache, Dental infection Discharge ED - Sign-Out/Discharge Documenting (check all that apply): Patient Departure - Discharge Plan Condition: Good Disposition: HOME Prescriptions: Clindamycin Cap(NF) [Clindamycin Cap 300 mg Cap(NF)] 300 mg PO TID #20 cap Patient Education Materials: Acute Headache (ED), Toothache (ED) Forms: *Work Release Referrals: Rosetta Santillan NP [Primary Care Provider] - Additional Instructions: Take clindamycin three times a day for 7 days take zofran every 6 hours as needed for nausea Take ibuprofen or tyenlol every 6 hours for pain as needed Avoid hard, crunchy food until seen by dentist Return to ED if develop any new or worsening symptoms Establish care with dentist as soon as possible - Billing Disposition and Condition Condition: GOOD Disposition: Home
[2019-11-30] MEDS ORDERED: Ketorolac INJ* 30 MG/ML 1 ML VIAL IM ONE (21:22)
[2019-11-30] MEDS ORDERED: Clindamycin CAP* 150 MG PO ONE (22:15)
[2019-11-30] MEDS ORDERED: O ndansetron ODT 4MG 5TAB PRPK 4 MG PAK PO ONE (22:15)
[2019-11-30] MEDS ORDERED: Acetaminophen TAB* 325 MG PO ONE (22:38)
[2019-11-30 22:52] VITALS: BP 128/63
== END 2019-11-30 22:35 | disposition home or self-care (01) ==
LOC: ED 19:24
DX: R51 Headache (principal); K04.7 Periapical abscess without sinus; F41.9 Anxiety disorder, unspecified; F32.9 Major depressive disorder, single episode, unspecified; F17.200 Nicotine dependence, unspecified, uncomplicated; Z88.1 Allergy status to other antibiotic agents; Z88.5 Allergy status to narcotic agent
CPT/HCPCS: 70450; 96372; 99282; A9270-GY; J1885